=== PATIENT | female | born 1955 | race Caucasian/White ===

== ENCOUNTER → 2016-08-08 | Outpatient (CLI) | payer BC ==
[~2016-08-08] MED LIST: ASCORBIC ACID250 MG PO; CITALOPRAM HBR40 MG PO; DICYCLOMINE HCL20 MG PO; FEROSUL325 ( 651 PO; FERRO-TIME325 MG PO; FLEXERIL10 M1 PO; FOLIC ACID1 MG PO; IBUPROFEN800 MG PO; LISINOPRIL20 MG PO; OMEPRAZOLE40 MG PO; PHENERGAN25 MG PO; ZOLOFT50 MG PO
--- NOTE | ~2016-08-08 | MY11 ---
[facility] A Service of [facility] RADIOLOGY TEXT RESULTS PATIENT: CHARLENE FOWLER LOCATION: [facility] : 59 UNIT #: [id number] AGE: [address]: Kimmie Romo NP SEX: F ORDER DR: [id number] [address] [address] [id number] O MR#: [id number] Acc #: [id number] NAME: CHARLENE FOWLER : 1955 SEX: F STUDY DATE/TIME: 08/08/2016 11:08 UNIT: [facility] ROOM: STUDY DESCRIPTION: MY Mammogram Screening [facility] Attending Physician: Kimmie Romo A.P.R.N. Referring Physician: Kimmie Romo A.P.R.N. Ordering Physician: Kimmie Romo A.P.R.N. Primary Care Physician: Kimmie Romo A.P.R.N. MEDICAL IMAGING REPORT This report is preliminary unless electronic signature is present. EXAM Digital screening mammogram, 08/08/2016 HISTORY 61-year-old woman, no risk elevation. Annual screening. COMPARISON Mammograms date to 11/27/2008 with most recent 12/15/2014. FINDINGS Digital imaging of each breast was completed utilizing a two-view examination of each breast in craniocaudal and mediolateral-oblique projections. Review and interpretation of digital mammograms include a second review in conjunction with FDA-approved CAD device. There is a normal parenchymal presentation bilaterally consistent with the patient's age. There are no breast masses imaged and no parenchymal asymmetry is visualized. There are no suspicious microcalcifications and I see no focal architectural disturbance. IMPRESSION Negative screening digital mammogram. One-year followup recommended. Patients over the age of 40 are entered into a reminder system with target due date for the next mammogram. A result letter will also be sent to the patient. BIRADS: 1 Negative ADDENDUM Breast parenchyma is fatty replaced. Dictated by... Nadir Mariee M.D. [facility] A Service of [facility] RADIOLOGY TEXT RESULTS PATIENT: CHARLENE FOWLER LOCATION: [facility] : 59 UNIT #: [id number] AGE: [address]: Kimmie Romo NP SEX: F ORDER DR: THIS IS AN ELECTRONICALLY VERIFIED REPORT Nadir Mariee M.D. at 08/14/2016 12:02 PM Frances TD: 08/08/2016 11:47 JOB #: [id number] MEDICAL IMAGING REPORT Page 1 of 1
== END | disposition home or self-care (01) ==
LOC: SMAM 10:26
DX: Z12.31 Encounter for screening mammogram for malignant neoplasm of breast (principal)
CPT/HCPCS: G0202